=== PATIENT | male | born 1945 | race African-American/Black ===

== ENCOUNTER 2016-10-07 11:43 | Emergency (ER) | payer OTHER, MEDICAID ==
[2016-10-07 15:50] VITALS: BP 118/74
== END 2016-10-07 15:50 | disposition home or self-care (01) ==
LOC: ED 11:43
DX: T78.3XXA Angioneurotic edema, initial encounter (principal); R22.0 Localized swelling, mass and lump, head; F17.210 Nicotine dependence, cigarettes, uncomplicated; I10 Essential (primary) hypertension; Y92.89 Other specified places as the place of occurrence of the external cause
CPT/HCPCS: J0171; J1200; J2930

== ENCOUNTER 2017-03-06 18:23 | Emergency (ER) | payer OTHER, MEDICAID ==
[~2017-03-06] VITALS: Ht 180.3 cm; Wt 66.2 kg
[2017-03-06 20:00] LABS: BASOPHIL % 0.5 % (0-2); PLATELET COUNT 389 x10^3mcL (130-400)
[2017-03-06 20:10] LABS: RED CELL DISTRIBUTION WIDTH 17.5 % (11.5-14.5)
[2017-03-06 20:21] LABS: ALKALINE PHOSPHATASE 76 U/L (46-116); ALT/SGPT 10 U/L (16-63); AST/SGOT 15 U/L (15-37); BILIRUBIN TOTAL 0.26 mg/dL (0.20-1.00); CALCIUM 8.8 mg/dL (8.5-10.1); CARBON DIOXIDE 34.3 mmol/L (21-32); CHLORIDE SERUM 103 mmol/L (98-107); CREATININE SERUM 0.9 mg/dL (0.7-1.3); SODIUM SERUM 141 mmol/L (136-145)
[2017-03-06 20:23] LABS: TOTAL PROTEIN, SERUM 8.4 g/dL (6.4-8.2)
[2017-03-06 20:27] LABS: GLUCOSE SERUM 88 mg/dL (74-106)
[2017-03-06 21:21] VITALS: BP 154/78
== END 2017-03-06 21:21 | disposition home or self-care (01) ==
LOC: ED 18:23
PROVIDERS: Emergency Medicine
DX: R60.0 Localized edema (principal); M16.0 Bilateral primary osteoarthritis of hip; F17.210 Nicotine dependence, cigarettes, uncomplicated; I10 Essential (primary) hypertension
CPT/HCPCS: 36415; 99406; J1885; Q0092